=== PATIENT | female | born 1935 | race Caucasian/White ===

== ENCOUNTER 2018-02-07 18:25 | Inpatient (IN) | payer OTHER ==
[~2018-02-07] VITALS: Ht 152.4 cm; Wt 97.5 kg
[~2018-02-07 18:25] MED LIST: AMLODIPINE BESY10 M1 PO; CHLORTHALIDONE25 MG PO; DORZOLAMIDE HYD10 M2; FERROUS SULFAT325 M2 PO; HUMALOG100 U/ML SC; HYD500; LANTUS SOLOS100 U/M1; MAGNESIUM OXID400 MG PO; PRAVACHOL20 MG PO; SYNTHROID0.05 MG PO; VITA #121000 MCG/M IM; VITAMIN-D1000 IU PO; XALOS
[2018-02-07 18:35] VITALS: Ht 152.4 cm; Wt 97.5 kg
[2018-02-07 20:27] LABS: BASOPHIL % 0.7 % (0-2); PLATELET COUNT 302 x10^3mcL (130-400); RED CELL DISTRIBUTION WIDTH 13.5 % (11.5-14.5)
[2018-02-07 20:29] LABS: CALCIUM 9.1 mg/dL (8.5-10.1); CARBON DIOXIDE 24.6 mmol/L (21-32); CHLORIDE SERUM 101 mmol/L (98-107); GLUCOSE SERUM 222 mg/dL (74-106); SODIUM SERUM 139 mmol/L (136-145)
[2018-02-07 20:34] LABS: ALKALINE PHOSPHATASE 79 U/L (46-116); ALT/SGPT 21 U/L (14-59); AST/SGOT 16 U/L (15-37); BILIRUBIN TOTAL 0.26 mg/dL (0.20-1.00); TOTAL PROTEIN, SERUM 6.6 g/dL (6.4-8.2)
[2018-02-07 20:48] LABS: microscopic required? NO
[2018-02-07 21:09] LABS: FREE T4 0.99 ng/dL (0.76-1.46)
[2018-02-07 21:21] LABS: urine erythrocyte NEGATIVE (NEGATIVE)
[2018-02-07 21:38] LABS: AMPHETAMINE QUAL UR NONE DETECTED (See below)
[2018-02-08] VITALS (7 sets, daily range): BP systolic 138–161; BP diastolic 59–84
[2018-02-08 06:51] LABS: BASOPHIL % 0.5 % (0-2); PLATELET COUNT 288 x10^3mcL (130-400); RED CELL DISTRIBUTION WIDTH 13.7 % (11.5-14.5)
[2018-02-08 07:14] LABS: ALKALINE PHOSPHATASE 71 U/L (46-116); ALT/SGPT 15 U/L (14-59); AST/SGOT 16 U/L (15-37); BILIRUBIN TOTAL 0.3 mg/dL (0.20-1.00); CALCIUM 8.3 mg/dL (8.5-10.1); CARBON DIOXIDE 28.1 mmol/L (21-32); CHLORIDE SERUM 105 mmol/L (98-107); CREATININE SERUM 0.8 mg/dL (0.6-1.0); GLUCOSE SERUM 123 mg/dL (74-106); SODIUM SERUM 141 mmol/L (136-145); T4(THYROXINE) 7.5 ug/dL (4.7-13.3); TOTAL PROTEIN, SERUM 6.4 g/dL (6.4-8.2)
[2018-02-08 07:24] LABS: ALBUMIN 2.9 g/dL (3.4-5.0)
[2018-02-08] MEDS ORDERED: COZAAR100 MG (18:18)
[2018-02-08] MEDS ORDERED: TOPROL XL25 MG (18:18)
== END 2018-02-08 21:33 | disposition short-term general hospital (02) | DRG 65 ==
LOC: ED 18:25 → DU 02-08 01:30
PROVIDERS: Emergency Medicine; Internal Medicine Pulmonary Disease
DX: I63.9 Cerebral infarction, unspecified (principal); N17.9 Acute kidney failure, unspecified; R47.81 Slurred speech; R41.89 Other symptoms and signs involving cognitive functions and awareness; I10 Essential (primary) hypertension; E11.9 Type 2 diabetes mellitus without complications; E78.5 Hyperlipidemia, unspecified; E03.9 Hypothyroidism, unspecified; E66.9 Obesity, unspecified; Z86.73 Personal history of transient ischemic attack (TIA), and cerebral infarction without residual deficits
CPT/HCPCS: 83880; 84439; 97530-GP; G0480; J0696; J2001; J3480; Q0092